=== PATIENT | male | born 1955 | race Caucasian/White ===

== ENCOUNTER → 2023-05-16 06:24 | Outpatient (REF) | payer MEDICARE, SELFPAY ==
[2023-05-16 06:58] LABS: Hematocrit 38.2 % (39.0-52.0); Mean Corpuscular Hgb 31.3 pg (27.0-31.0); Mean Corpuscular Volume 91.8 fL (80.0-94.0); Mean Platelet Volume 9.6 fL (7.4-10.4); Platelet Count 195 10^3/uL (130-400); Red Blood Cell Count 4.16 10^6/uL (4.70-6.10); Red Cell Dist. Width 12.3 % (11.5-14.5)
[2023-05-16 07:38] LABS: Albumin 3.8 g/dl (3.5-5.0); Blood Urea Nitrogen 38 mg/dl (9-20); Calcium 9.8 mg/dl (8.4-10.2); Carbon Dioxide 26 mmol/L (22-30); Chloride 103 mmol/L (98-107); Glucose 102 mg/dl (70-99); Phosphorus 4.1 mg/dl (2.5-4.5); Potassium 4.3 mmol/L (3.5-5.1); Sodium 140 mmol/L (135-145); eGFR 25.88
[2023-05-16 07:49] LABS: Vitamin D, 25-OH*** 67.6 ng/mL (30-80)
[2023-05-18 09:34] LABS: Intact PTH 68.4 pg/ml (13.6-85.8)
== END ==
LOC: REG 06:24
PROVIDERS: ATTENDING PHYSICIAN Internal Medicine
DX: N18.4 Chronic kidney disease, stage 4 (severe) (principal); N25.81 Secondary hyperparathyroidism of renal origin
CPT/HCPCS: 36415; 80069; 82306; 83970; 85027

== ENCOUNTER → 2023-08-20 06:28 | Outpatient (REF) | payer MEDICARE, SELFPAY ==
[2023-08-20 08:38] LABS: Albumin 4.6 g/dl (3.5-5.0); Blood Urea Nitrogen 28 mg/dl (9-20); Carbon Dioxide 26 mmol/L (22-30); Chloride 105 mmol/L (98-107); Glucose 89 mg/dl (70-99); Phosphorus 3.9 mg/dl (2.5-4.5); Sodium 142 mmol/L (135-145); eGFR 25.88
[2023-08-20 08:46] LABS: Protein/creatinine Ratio 0.1; Urine Protein 10 mg/dl
== END ==
LOC: REG 06:28
PROVIDERS: ATTENDING PHYSICIAN Internal Medicine
DX: D64.9 Anemia, unspecified (principal); N17.9 Acute kidney failure, unspecified; N18.4 Chronic kidney disease, stage 4 (severe)
CPT/HCPCS: 36415; 80069; 82570; 84156

== ENCOUNTER → 2023-08-27 09:18 | Outpatient (REF) | payer MEDICARE, SELFPAY ==
[2023-08-27 14:11] LABS: PSA, Total - Diagnostic 2.76 ng/ml (0.0-4.0)
== END ==
LOC: REG 09:18
PROVIDERS: ATTENDING PHYSICIAN Specialist
DX: R97.20 Elevated prostate specific antigen [PSA] (principal)
CPT/HCPCS: 36415; 84153

== ENCOUNTER → 2024-02-18 06:21 | Outpatient (REF) | payer MEDICARE, SELFPAY ==
[2024-02-18 06:46] LABS: Hematocrit 41.2 % (39.0-52.0); Mean Corpuscular Hgb 32.1 pg (27.0-31.0); Mean Corpuscular Volume 94.5 fL (80.0-94.0); Mean Platelet Volume 10.2 fL (7.4-10.4); Platelet Count 159 10^3/uL (130-400); Red Blood Cell Count 4.36 10^6/uL (4.70-6.10); Red Cell Dist. Width 12.7 % (11.5-14.5); White Blood Cell Count 7.1 10^3/uL (4.8-10.8)
[2024-02-18 07:15] LABS: Albumin 4.6 g/dl (3.5-5.0); Blood Urea Nitrogen 33 mg/dl (9-20); Calcium 9.7 mg/dl (8.4-10.2); Carbon Dioxide 27 mmol/L (22-30); Chloride 102 mmol/L (98-107); Glucose 101 mg/dl (70-99); Phosphorus 3.8 mg/dl (2.5-4.5); Potassium 4.4 mmol/L (3.5-5.1); Sodium 145 mmol/L (135-145); eGFR 26.96
[2024-02-18 07:30] LABS: Vitamin D, 25-OH*** 76.1 ng/mL (30-80)
[2024-02-18 09:50] LABS: Intact PTH 97.2 pg/ml (13.6-85.8)
== END ==
LOC: REG 06:21
PROVIDERS: ATTENDING PHYSICIAN Internal Medicine
DX: N18.4 Chronic kidney disease, stage 4 (severe) (principal); N25.81 Secondary hyperparathyroidism of renal origin
CPT/HCPCS: 36415; 80069; 82306; 83970; 85027

== ENCOUNTER → 2024-08-20 06:32 | Outpatient (REF) | payer MEDICARE, SELFPAY ==
[2024-08-20 07:27] LABS: Hematocrit 42.1 % (39.0-52.0); Hemoglobin 14.4 g/dL (13.0-18.0); Mean Corp Hgb Conc. 34.2 g/dL (33.0-37.0); Mean Corpuscular Hgb 32.1 pg (27.0-31.0); Mean Corpuscular Volume 93.8 fL (80.0-94.0); Mean Platelet Volume 10.4 fL (7.4-10.4); Platelet Count 155 10^3/uL (130-400); Red Blood Cell Count 4.49 10^6/uL (4.70-6.10); Red Cell Dist. Width 12.8 % (11.5-14.5)
[2024-08-20 07:49] LABS: Albumin 4.8 g/dl (3.5-5.0); Blood Urea Nitrogen 34 mg/dl (9-20); Calcium 9.7 mg/dl (8.4-10.2); Carbon Dioxide 26 mmol/L (22-30); Chloride 108 mmol/L (98-107); Glucose 87 mg/dl (70-99); Phosphorus 3.6 mg/dl (2.5-4.5); Potassium 4.2 mmol/L (3.5-5.1); Sodium 143 mmol/L (135-145)
[2024-08-20 07:53] LABS: Urine Protein 11 mg/dl (0-12)
[2024-08-20 08:12] LABS: PSA, Total - Diagnostic 3.59 ng/ml (0.0-4.0)
[2024-08-20 09:17] LABS: Glycohemoglobin (HgbA1c) 5.4 % (4.0-5.6)
== END ==
LOC: REG 06:32
PROVIDERS: ATTENDING PHYSICIAN Internal Medicine; REFERRING PHYSICIAN Specialist
DX: R97.20 Elevated prostate specific antigen [PSA] (principal); R73.01 Impaired fasting glucose; N18.4 Chronic kidney disease, stage 4 (severe)
CPT/HCPCS: 36415; 80069; 82570; 83036; 84153; 84156; 85027

== ENCOUNTER → 2025-02-23 06:31 | Outpatient (REF) | payer MEDICARE, SELFPAY ==
[2025-02-23 08:23] LABS: Albumin 4.5 g/dl (3.5-5.0); Blood Urea Nitrogen 32 mg/dl (9-20); Calcium 9.6 mg/dl (8.4-10.2); Carbon Dioxide 30 mmol/L (22-30); Chloride 104 mmol/L (98-107); Glucose 87 mg/dl (70-99); HDL Cholesterol 38 mg/dl; LDL Cholesterol, Calculated 78 mg/dl; Potassium 4.1 mmol/L (3.5-5.1); Sodium 140 mmol/L (135-145); Very Low Density Lipoprotein 11 mg/dl (0-30); eGFR 29.62
[2025-02-23 08:36] LABS: Vitamin D, 25-OH*** 73.4 ng/mL (30-80)
[2025-02-23 08:49] LABS: PSA, Total - Diagnostic 2.70 ng/ml (0.0-4.0)
== END ==
LOC: REG 06:31
PROVIDERS: ATTENDING PHYSICIAN Internal Medicine; REFERRING PHYSICIAN Specialist
DX: R97.20 Elevated prostate specific antigen [PSA] (principal); N18.4 Chronic kidney disease, stage 4 (severe); N25.81 Secondary hyperparathyroidism of renal origin; I10 Essential (primary) hypertension
CPT/HCPCS: 36415; 80061; 80069; 82306; 83970; 84153